=== PATIENT | male | born 1955 | race Caucasian/White ===

== ENCOUNTER → 2016-07-28 | Outpatient (CLI) | payer OTHER ==
--- NOTE | 2016-07-28 18:52 | REP ---
Right shoulder four views: Comparison is 04/18/2010. There is acromioclavicular osteoarthritis, unchanged. Mineralization is normal. The glenohumeral articulation is unremarkable. There are no calcifications or foreign bodies. No fracture or dislocation. Impression: Acromioclavicular osteoarthritis. Otherwise, negative right shoulder. Signed by Sanchez Castaneda MD 07/28/2016 06:43 P
== END ==
LOC: M WUC 14:34
PROVIDERS: ATTEND Family Medicine
DX: M19.011 Primary osteoarthritis, right shoulder (principal)

== ENCOUNTER → 2017-03-24 | Outpatient (CLI) | payer OTHER | LOC: M SMT 14:23 | PROVIDERS: ATTEND Urology | DX: N20.0 Calculus of kidney (principal) ==

== ENCOUNTER → 2018-03-22 | Outpatient (CLI) | payer OTHER ==
[2018-03-22 17:29] LABS: PSA SCREENING 2.07 NG/ML (< 4.0)
== END ==
LOC: M SMT 13:37
DX: N20.0 Calculus of kidney (principal)
CPT/HCPCS: G0103

== ENCOUNTER → 2018-10-28 | Outpatient (REF) | payer OTHER | LOC: M LAB REF 13:33 | PROVIDERS: ATTEND Family Medicine | DX: R05 Cough (principal); R53.83 Other fatigue ==

== ENCOUNTER → 2019-05-03 | Outpatient (CLI) | payer OTHER | LOC: M SMT 09:59 | PROVIDERS: ATTEND Urology | DX: N20.0 Calculus of kidney (principal) | CPT/HCPCS: 36415; G0103 ==

== ENCOUNTER 2019-05-17 08:40 | Outpatient (RCR) | payer OTHER | END 2019-05-20 | LOC: M PT 08:40 | PROVIDERS: ATTEND Orthopaedic Surgery | DX: Z98.890 Other specified postprocedural states (principal); Z51.89 Encounter for other specified aftercare ==

== ENCOUNTER 2019-06-15 08:30 | Outpatient (RCR) | payer OTHER | END 2019-06-20 | LOC: M PT 08:30 | PROVIDERS: ATTEND Orthopaedic Surgery | DX: S56.911D Strain of unspecified muscles, fascia and tendons at forearm level, right arm, subsequent encounter (principal); M77.9 Enthesopathy, unspecified; M25.511 Pain in right shoulder; Z98.890 Other specified postprocedural states; X58.XXXD Exposure to other specified factors, subsequent encounter; Y92.89 Other specified places as the place of occurrence of the external cause ==

== ENCOUNTER 2019-07-19 08:13 | Outpatient (RCR) | payer OTHER | END 2019-07-21 | LOC: M PT 08:13 | PROVIDERS: ATTEND Orthopaedic Surgery | DX: Z98.890 Other specified postprocedural states (principal) ==

== ENCOUNTER 2019-08-16 14:45 | Outpatient (RCR) | payer OTHER | END 2019-08-19 | LOC: M PT 14:45 | PROVIDERS: ATTEND Orthopaedic Surgery | DX: Z47.89 Encounter for other orthopedic aftercare (principal); Z98.890 Other specified postprocedural states ==

== ENCOUNTER → 2019-09-04 | Outpatient (REF) | payer OTHER ==
[2019-09-04 17:44] LABS: BLOOD UREA NITROGEN 16 MG/DL (7-18); CREATININE FOR GFR 0.99 MG/DL (0.70-1.30); GLOMERULAR FILTRATION RATE > 60.0 (>49)
== END ==
LOC: M LABNEURO 13:29
PROVIDERS: ATTEND Urology
DX: Z01.812 Encounter for preprocedural laboratory examination (principal); Z80.42 Family history of malignant neoplasm of prostate; R97.20 Elevated prostate specific antigen [PSA]

== ENCOUNTER 2019-09-06 14:45 | Outpatient (RCR) | payer OTHER | END 2019-09-19 | LOC: M PT 14:45 | PROVIDERS: ATTEND Orthopaedic Surgery | DX: Z47.89 Encounter for other orthopedic aftercare (principal); Z98.890 Other specified postprocedural states ==

== ENCOUNTER → 2019-09-15 | Outpatient (REF) | payer OTHER | LOC: M LABDRWAD 17:10 | PROVIDERS: ATTEND Urology | DX: R97.20 Elevated prostate specific antigen [PSA] (principal) ==

== ENCOUNTER → 2019-11-16 | Outpatient (REF) | payer OTHER ==
[2019-11-16 19:38] LABS: AMYLASE 70 U/L (25-115); LIPASE 122 U/L (73-393)
== END ==
LOC: M LAB REF 16:50
PROVIDERS: ATTEND Registered Nurse
DX: R10.11 Right upper quadrant pain (principal); M54.6 Pain in thoracic spine

== ENCOUNTER → 2020-03-26 | Outpatient (CLI) | payer OTHER ==
[2020-03-26 08:45] LABS: CHOLESTEROL RISK RATIO 2.418 (<5)
== END ==
LOC: M LAB 07:33
PROVIDERS: ATTEND Internal Medicine Cardiovascular Disease
DX: E78.00 Pure hypercholesterolemia, unspecified (principal)

== ENCOUNTER → 2020-05-07 | Outpatient (CLI) | payer OTHER ==
[2020-05-07 17:58] LABS: HEMATOCRIT 47.5 % (42.0-52.0); HEMOGLOBIN 15.4 g/dl (13.5-17.5); MEAN CORPUSCULAR HEMOGLOBIN 29.7 pg (27.0-33.0); MEAN CORPUSCULAR HGB CONC 32.4 g/dl (32.0-36.5); MEAN CORPUSCULAR VOLUME 91.5 fl (80.0-96.0); PLATELET COUNT, AUTOMATED 249 10^3/uL (150-450); RED BLOOD COUNT 5.19 10^6/uL (4.30-6.10); WHITE BLOOD COUNT 8.1 10^3/uL (4.0-10.0)
[2020-05-07 18:13] LABS: HEMOGLOBIN A1c 6.2 %
[2020-05-07 18:19] LABS: ALBUMIN 4.5 GM/DL (3.2-5.2); ALT/SGPT 31 U/L (12-78); BILIRUBIN,TOTAL 0.6 MG/DL (0.2-1.0); BLOOD UREA NITROGEN 15 MG/DL (7-18); CALCIUM LEVEL 9.8 MG/DL (8.8-10.2); CARBON DIOXIDE LEVEL 29 MEQ/L (21-32); CHLORIDE LEVEL 100 MEQ/L (98-107); CHOLESTEROL LEVEL 147 MG/DL (<200); CHOLESTEROL RISK RATIO 2.194 (<5); CREATININE FOR GFR 1.06 MG/DL (0.70-1.30); FREE T4 0.99 NG/DL (0.76-1.46); GLOMERULAR FILTRATION RATE > 60.0 (>49); GLUCOSE, FASTING 180 MG/DL (70-100); HDL CHOLESTEROL 67 MG/DL (>40); LDL CHOLESTEROL 40 MG/DL (<100); NON-HDL-C 80 MG/DL; SODIUM LEVEL 138 MEQ/L (136-145); THYROXINE (T4) 6.8 UG/DL (4.5-12.0); TOTAL 25(OH) VITAMIN D 21.6 NG/ML (30.0-100.0); TOTAL PROTEIN 7.6 GM/DL (6.4-8.2); TRIGLYCERIDES LEVEL 199 MG/DL (<150)
[2020-05-07 18:21] LABS: CREATININE, URINE 33.7 MG/DL; MALB URINE SIEMENS 6.4 MG/L; MAU/CREAT RATIO 18.9 MCG/MG (0.0-30.0)
[2020-05-09 14:08] LABS: C-PEPTIDE 4.8 ng/mL (1.1-4.4)
== END ==
LOC: M LABDRWAD 14:17
DX: E11.65 Type 2 diabetes mellitus with hyperglycemia (principal)

== ENCOUNTER → 2021-02-12 | Outpatient (REF) | payer OTHER ==
[2021-02-12 17:36] LABS: TOTAL 25(OH) VITAMIN D 28.1 NG/ML (30.0-100.0)
[2021-02-17 14:12] LABS: VITAMIN E(ALPHA TOCOPHEROL) 11.3 mg/L (9.0-29.0); VITAMIN E(GAMMA TOCOPHEROL) 1.9 mg/L (0.5-4.9)
== END ==
LOC: M LAB REF 16:35
PROVIDERS: ATTEND Family Medicine
DX: E11.9 Type 2 diabetes mellitus without complications (principal); I10 Essential (primary) hypertension; Z87.442 Personal history of urinary calculi

== ENCOUNTER → 2022-02-05 | Outpatient (CLI) | payer OTHER | LOC: M RAD 08:45 | PROVIDERS: ATTEND Physician Assistant | DX: M79.661 Pain in right lower leg (principal) ==

== ENCOUNTER → 2022-09-16 | Outpatient (CLI) | payer OTHER ==
[2022-09-16 17:37] LABS: HEMATOCRIT 47.4 % (42.0-52.0); HEMOGLOBIN 15.8 g/dl (13.5-17.5); MEAN CORPUSCULAR HEMOGLOBIN 31.2 pg (27.0-33.0); MEAN CORPUSCULAR HGB CONC 33.3 g/dl (32.0-36.5); MEAN CORPUSCULAR VOLUME 93.7 fl (80.0-96.0); PLATELET COUNT, AUTOMATED 223 10^3/uL (150-450); RED BLOOD COUNT 5.06 10^6/uL (4.30-6.10); WHITE BLOOD COUNT 7.8 10^3/uL (4.0-10.0)
== END ==
LOC: M WUC 14:46
PROVIDERS: ATTEND Physician Assistant
DX: K62.5 Hemorrhage of anus and rectum (principal)

== ENCOUNTER 2023-05-18 16:11 | Emergency (ER) | payer OTHER ==
[~2023-05-18] VITALS: Ht 172.7 cm; Wt 90.9 kg
[2023-05-18 17:46] LABS: BASO # 0.1 10^3/uL (0.0-0.2); BASO % 0.6 % (0.0-1.0); EOS # 0.1 10^3/uL (0.0-0.5); EOS % 0.6 % (0.0-3.0); HEMATOCRIT 50.4 % (42.0-52.0); HEMOGLOBIN 17.2 g/dl (13.5-17.5); LYMPH # 1.7 10^3/uL (1.5-5.0); LYMPH % 7.7 % (24.0-44.0); MEAN CORPUSCULAR HEMOGLOBIN 31.7 pg (27.0-33.0); MEAN CORPUSCULAR HGB CONC 34.1 g/dl (32.0-36.5); MONO % 9.5 % (2.0-8.0); NEUTROPHILS # 17.6 10^3/uL (1.5-8.5); PLATELET COUNT, AUTOMATED 260 10^3/uL (150-450); RED BLOOD COUNT 5.42 10^6/uL (4.30-6.10); WHITE BLOOD COUNT 21.8 10^3/uL (4.0-10.0)
[2023-05-18 18:10] LABS: MONO # 2.1 10^3/uL (0.0-0.8)
[2023-05-18 18:15] LABS: LIPASE 38 U/L (12-53)
[2023-05-18 18:16] LABS: CK-MB VALUE MASS < 1.0 NG/ML (<3.6)
[2023-05-18 18:17] LABS: ALBUMIN 4.6 G/DL (3.2-5.2); ALKALINE PHOSPHATASE 99 U/L (46-116); ALT/SGPT 34 U/L (7.0-40); AST/SGOT 27 U/L (<34); BILIRUBIN,DIRECT 0.2 MG/DL (<0.4); BILIRUBIN,TOTAL 0.5 MG/DL (0.3-1.2); BLOOD UREA NITROGEN 23 MG/DL (9-23); CALCIUM LEVEL 9.6 MG/DL (8.3-10.6); CARBON DIOXIDE LEVEL 28 MMOL/L (20-31); CHLORIDE LEVEL 103 MMOL/L (98-107); CPK CREATINE PHOSPHOKINASE 95 U/L (46-171); CREATININE FOR GFR 0.92 MG/DL (0.70-1.30); GLOMERULAR FILTRATION RATE > 60.0 (>49); GLUCOSE, FASTING 127 MG/DL (74-106); MB/CK RELATIVE INDEX 1.05 (< OR =4); SODIUM LEVEL 145 MMOL/L (136-145); TOTAL PROTEIN 7.8 G/DL (5.7-8.2)
[2023-05-18] MEDS ORDERED: FAMOTIDINE 20MG/2ML VIAL IVP ONE (22:10)
[2023-05-18] MEDS ORDERED: NS 1,000 ML IV ONE (22:10)
[2023-05-18] MEDS ORDERED: ONDANSETRON 4MG 2ML VIAL IV ONE (22:10)
[2023-05-18] MEDS ORDERED: ISOVUE-370 76% 100ML VIAL As Ordered ONE (22:13)
[2023-05-18] MEDS ORDERED: PIPERACILLIN/TAZOBACTAM SOD 4.5 GM in D5W MINI-BAG PLUS 50 ML IV ONE (22:30)
[2023-05-18] MEDS ORDERED: NS 1,730 ML in IV 1 EA IV ONE (23:30)
[2023-05-18 23:42] LABS: RSV AMPLIFICATION NEGATIVE (NEGATIVE)
[2023-05-19 00:08] VITALS: BP 123/58; TEMP 100.1; O2SAT 95
[2023-05-19] MEDS ORDERED: ACETAMINOPHEN 500 MG TAB PO ONE (00:35)
[2023-05-19 00:55] LABS: CK-MB VALUE MASS < 1.0 NG/ML (<3.6)
[2023-05-19 00:58] LABS: CPK CREATINE PHOSPHOKINASE 101 U/L (46-171); MB/CK RELATIVE INDEX 0.99 (< OR =4)
[2023-05-19] MEDS ORDERED: ONDA4TAB6 PO (03:47)
== END 2023-05-19 04:28 | disposition home or self-care (01) ==
LOC: M ED 16:11
DX: K52.9 Noninfective gastroenteritis and colitis, unspecified (principal); F10.10 Alcohol abuse, uncomplicated; Z79.83 Long term (current) use of bisphosphonates
CPT/HCPCS: 74177; 80048; 80076; 82550; 82553; 83605; 83690; 84484; 85025; 87040; 87507; 87631; 96361; 96374; 96375; 99284; J2405; J2543; Q9967; S0028

== ENCOUNTER → 2023-09-09 | Outpatient (CLI) | payer MEDICARE, OTHER ==
[~2023-09-09] MED LIST: ONDA4TAB6 PO
== END ==
LOC: M PLAIMG 08:09
PROVIDERS: ATTEND Orthopaedic Surgery
DX: M16.12 Unilateral primary osteoarthritis, left hip (principal); S76.312A Strain of muscle, fascia and tendon of the posterior muscle group at thigh level, left thigh, initial encounter; M70.62 Trochanteric bursitis, left hip; Y93.9 Activity, unspecified; Y92.9 Unspecified place or not applicable

== ENCOUNTER → 2024-03-03 | Outpatient (CLI) | payer MEDICARE, OTHER ==
[~2024-03-03] MED LIST changes: +ONDA-282 PO; -ONDA4TAB6 PO
[2024-03-03 09:47] LABS: HEMATOCRIT 42.3 % (42.0-52.0); HEMOGLOBIN 14.3 g/dl (13.5-17.5); MEAN CORPUSCULAR HEMOGLOBIN 31.3 pg (27.0-33.0); MEAN CORPUSCULAR HGB CONC 33.8 g/dl (32.0-36.5); MEAN CORPUSCULAR VOLUME 92.6 fl (80.0-96.0); PLATELET COUNT, AUTOMATED 202 10^3/uL (150-450); RED BLOOD COUNT 4.57 10^6/uL (4.30-6.10); WHITE BLOOD COUNT 5.1 10^3/uL (4.0-10.0)
[2024-03-03 09:56] LABS: ERYTHROCYTE SEDIMENTATION RATE 6 mm/hr (0-20)
[2024-03-03 10:14] LABS: C REACTIVE PROTEIN QUANTITATIV < 0.40 MG/DL (<1.0)
[2024-03-03 10:16] LABS: ALBUMIN 3.9 G/DL (3.2-5.2); ALKALINE PHOSPHATASE 109 U/L (46-116); ALT/SGPT 24 U/L (7.0-40); AST/SGOT 20 U/L (<34); BILIRUBIN,TOTAL 0.7 MG/DL (0.3-1.2); BLOOD UREA NITROGEN 17 MG/DL (9-23); CALCIUM LEVEL 9.5 MG/DL (8.3-10.6); CARBON DIOXIDE LEVEL 31 MMOL/L (20-31); CHLORIDE LEVEL 107 MMOL/L (98-107); GLOMERULAR FILTRATION RATE > 60.0 (>42); GLUCOSE, FASTING 153 MG/DL (74-106); SODIUM LEVEL 142 MMOL/L (136-145); TOTAL PROTEIN 6.6 G/DL (5.7-8.2)
== END ==
LOC: M WUC 08:27
PROVIDERS: ATTEND Registered Nurse
DX: R11.2 Nausea with vomiting, unspecified (principal); R19.7 Diarrhea, unspecified

== ENCOUNTER → 2024-03-27 | Outpatient (CLI) | payer MEDICARE, OTHER | LOC: M WUC 08:43 | PROVIDERS: ATTEND Registered Nurse | DX: R11.2 Nausea with vomiting, unspecified (principal); E11.9 Type 2 diabetes mellitus without complications ==

== ENCOUNTER → 2025-02-17 | Outpatient (CLI) | payer MEDICARE, OTHER | LOC: M RAD 11:31 | PROVIDERS: ATTEND Physician Assistant | DX: M25.562 Pain in left knee (principal); M79.661 Pain in right lower leg ==

== ENCOUNTER → 2025-02-28 | Outpatient (CLI) | payer MEDICARE, OTHER | LOC: M RAD 11:52 | PROVIDERS: ATTEND Physician Assistant | DX: M79.661 Pain in right lower leg (principal); M79.89 Other specified soft tissue disorders ==

== ENCOUNTER → 2025-05-09 | Outpatient (CLI) | payer MEDICARE, OTHER | LOC: M RAD 17:02 | PROVIDERS: ATTEND Family Medicine | DX: R05.9 Cough, unspecified (principal) ==

== ENCOUNTER → 2025-05-10 | Outpatient (REF) | payer MEDICARE, OTHER | LOC: M LAB REF 12:11 | PROVIDERS: ATTEND Nurse Practitioner Adult Health | DX: J02.9 Acute pharyngitis, unspecified (principal) ==